=== PATIENT | male | born 1965 | race African-American/Black ===

== ENCOUNTER 2016-05-14 17:07 | Emergency (ER) | payer BC ==
--- NOTE | ~2016-05-14 | PREOPHP ---
PreOp History and Physical [id number] [place]. [address] NAME: SHRUTI COATES : 65 STATUS : [facility]#: [id number] AGE: 50 ADM/REG DATE : 05/14/16 MR#: [id number] REPORT SERV DATE: 05/27/16 DICTATED BY: LORA BURR III DATE: 05/27/16 REPORT STATUS : Draft TRANSCRIBED BY: KATRIN DATE: 05/27/16 HISTORY OF PRESENT ILLNESS: This 50-year-old male comes to the operating room for resection of a low anterior abdominal wall mass. The patient has a soft tissue mass over the mid lower abdominal wall area in the suprapubic area. This was associated with recurrent infections and has required evaluation in the emergency room. The patient comes to the operating room now for resection of this mass. PAST MEDICAL HISTORY: 1. Gout. 2. History of obesity. MEDICATIONS: Sulfamethoxazole, Keflex, Levaquin, and Clobetasol. ALLERGIES: NONE. PAST SURGICAL HISTORY: Status post cholecystectomy. FAMILY HISTORY: Positive for throat cancer. SOCIAL HISTORY: The patient has history of tobacco abuse. He has a history of alcohol use. REVIEW OF SYSTEMS: The patient's fourteen-point review of systems is otherwise unremarkable. PHYSICAL EXAMINATION: GENERAL: This is an extremely obese male, in no acute distress. He has a large overhanging panniculus. VITAL SIGNS: Blood pressure 123/70, pulse 71, temperature 98.7. HEENT: Unremarkable. Cranial nerves 2 through 12 are normal. LUNGS: Clear. CARDIAC: Normal. ABDOMEN: Soft, nontender. Over the lower anterior abdominal wall and the suprapubic area in the midline, is a soft tissue mass, which is some 3 cm in size. It is poorly defined and not fluctuant. EXTREMITIES: Normal. ASSESSMENT: 1. A 50-year-old male with low anterior abdominal wall soft tissue mass, associated with recurrent infections requiring evaluation in the emergency room. 2. Gout. 3. Massive obesity. 4. Hyperlipidemia. PLAN: The patient comes to the operating room now for resection of this anterior abdominal wall mass. On this procedure, the risks, benefits, and alternatives, including but not limited to the risk for bleeding, infection, pain, swelling, scarring, deformity to the area, seroma formation, hematoma formation, recurrent infections, recurrence of the mass, PreOp History and Physical [address] [address] NAME: SHRUTI COATES : 65 STATUS : DEP PAT#: [id number] AGE: 50 ADM/REG DATE : 05/14/16 MR#: [id number] REPORT SERV DATE: 05/27/16 DICTATED BY: LORA BURR III DATE: 05/27/16 REPORT STATUS : Draft TRANSCRIBED BY: KATRIN DATE: 05/27/16 wound failure, wound dehiscence, and unforeseen complications including deep venous thrombosis, pulmonary embolus, myocardial infarction, stroke, pneumonia, and , have been explained to the patient prior to surgery. His questions have been answered. He understands the risks and agrees to surgery as planned. [facility]/KATRIN Lora Burr III, M.D. / [id number] CC: ANGELA MARRERO
[2016-05-14 18:31] LABS: BASOPHILS 0.7 %; EOSINOPHILS 3.9 %; ER CBC TAT 0 Hrs 07 Mins; HEMATOCRIT 45.8 % (40.0-51.0); HEMOGLOBIN 16.1 g/dL (13.6-17.8); IMMATURE GRANULOCYTES 0.5 %; IMMATURE GRANULOCYTES ABSOLUTE 0.07 10/3/uL (0.0-0.11); LYMPHOCYTES 25.6 %; LYMPHOCYTES ABSOLUTE 3.92 10/3/uL (0.67-4.30); MEAN CORPUSCULAR HEMOGLOB 31.1 pg (26.0-34.0); MEAN CORPUSCULAR VOLUME 88.6 fL (80-100); MEAN PLATELET VOLUME 9.2 fL (9.2-13.0); MONOCYTES 10.6 %; MONOCYTES ABSOLUTE 1.62 10/3/uL (0.21-1.20); NEUTROPHILS 58.7 %; NEUTROPHILS ABSOLUTE 9.01 10/3/uL (2.02-8.40); PLATELET COUNT 286 10/3/uL (150-400); RBC DISTRIBUTION WIDTH 12.7 % (12.0-16.0); RED CELL COUNT 5.17 10/6/uL (4.7-6.1); WHITE BLOOD CELLS 15.3 10/3/uL (4.5-10.5)
[2016-05-14 18:32] LABS: MANUAL DIFF NO %; MEAN CORPUS HGB CONC 35.2 g/dL (32.0-36.0)
[2016-05-14 18:41] LABS: BUN (BLOOD UREA NITROGEN) 12 MG/DL (6-23); CALCIUM, SERUM 8.8 MG/DL (8.5-10.4); CHLORIDE, SERUM 104 MMOL/L (96-112); CO2 (CARBON DIOXIDE) 29 MMOL/L (24-34); CREATININE 1.02 MG/DL (0.70-1.30); GFR AFRICAN AMERICAN 99 ML/MIN (>=60); GFR NON AFRICAN AMERICAN 85 ML/MIN (>=60); POTASSIUM, SERUM 3.8 MMOL/L (3.5-5.3); SODIUM, SERUM 141 MMOL/L (135-148)
[2016-05-14 18:42] LABS: GLUCOSE, SERUM 95 MG/DL (60-99)
[2016-06-06] MEDS ORDERED: ALEVE220 MG PO (15:38)
[2016-07-08] MEDS ORDERED: *DENIES (15:03)
== END 2016-05-14 21:10 | disposition home or self-care (01) ==
LOC: ER 17:07
PROVIDERS: Nurse Practitioner
DX: L03.311 Cellulitis of abdominal wall (principal); N40.0 Benign prostatic hyperplasia without lower urinary tract symptoms; I10 Essential (primary) hypertension; E11.9 Type 2 diabetes mellitus without complications
CPT/HCPCS: 74177; 80048; 85025; 96374; 99284; A9270-GY; J0690; Q9967

== ENCOUNTER 2016-07-14 06:23 | Day surgery (SDC) | payer BC ==
[2016-07-09 17:17] LABS: HEMATOCRIT 41.7 % (40.0-51.0); HEMOGLOBIN 14.3 g/dL (13.6-17.8)
--- NOTE | ~2016-07-14 | OP ---
Record Of [facility] [address] [place]. [address] NAME: SHRUTI ORTIZ : 65 STATUS : [facility] PAT#: [id number] AGE: 50 ADM/REG DATE : 07/14/16 MR#: [id number] REPORT SERV DATE: 07/14/16 DICTATED BY: TERRY MARTINES DATE: 07/14/16 REPORT STATUS : Draft TRANSCRIBED BY: MODL DATE: 07/14/16 DATE OF PROCEDURE: 07/14/2016 PREOPERATIVE DIAGNOSIS: Elevated PSA (7.5). POSTOPERATIVE DIAGNOSIS: Elevated PSA (7.5). PROCEDURE PERFORMED: Transrectal ultrasound with prostate needle biopsy. SURGEON: Terry Martines M.D. ANESTHESIA: Monitored anesthesia care. COMPLICATIONS: None. BLOOD LOSS: Minimal. DRAINS: None. SPECIMEN: Sextant prostate needle biopsies. INDICATION: Mr. Ortiz has a PSA of 7.5. He is too nervous to tolerate prostate needle biopsy in the office. He presents for transrectal ultrasound with prostate needle biopsy. TECHNIQUE: Ancef and gentamicin were given preoperative. He was brought to the operating room, placed in the left lateral decubitus position with the knees flexed, care was taken to pad pressure points. Digital rectal exam showed a 50 g to 60 g prostate. No nodularity. Transrectal endocavitary ultrasound probe was placed. Volume measurements were obtained with length 5.8 cm, height 5 cm, width 5.2 cm. Estimated volume 80 mL. The seminal vesicles were not dilated. There were multiple calcifications within the prostate in the transition zone particularly on the left. Sextant prostate needle biopsies were obtained. A total of 12 biopsies were obtained. Digital pressure was held against the biopsy sites. He tolerated the procedure and was taken to the recovery room in satisfactory condition. I will see him back in three weeks to review results. [facility]/KATRIN Terry Martines M.D. / [id number] CC: Terry Martines M.D. Record Of [facility] [address] [place] [address] NAME: SHRUTI ORTIZ : 65 STATUS : [facility] PAT#: [id number] AGE: 50 ADM/REG DATE : 07/14/16 MR#: [id number] REPORT SERV DATE: 07/14/16 DICTATED BY: TERRY MARTINES DATE: 07/14/16 REPORT STATUS : Draft TRANSCRIBED BY: MODL DATE: 07/14/16 Zoltan Bravo M.D.
[~2016-07-14 06:23] MED LIST: *DENIES; ALEVE220 MG PO
== END 2016-07-14 15:57 | disposition home or self-care (01) ==
LOC: SDC 06:23
PROVIDERS: Urology
PROC: 0VB07ZX Excision of Prostate, Via Natural or Artificial Opening, Diagnostic (ICD-10-PCS; principal; 2016-07-14 07:45)
DX: R97.20 Elevated prostate specific antigen [PSA] (principal); N40.0 Benign prostatic hyperplasia without lower urinary tract symptoms; M10.9 Gout, unspecified; F17.210 Nicotine dependence, cigarettes, uncomplicated; Z90.49 Acquired absence of other specified parts of digestive tract; Z98.890 Other specified postprocedural states
CPT/HCPCS: 76872; 76942; 85014; 85018; 88305; 93005; J0690; J1580; J2250; J3010

== ENCOUNTER 2016-08-14 10:03 | Emergency (ER) | payer BC ==
[2016-08-14 10:25] LABS: BASOPHILS 0.3 %; BASOPHILS ABSOLUTE 0.04 10/3/uL (0.0-0.16); EOSINOPHILS ABSOLUTE 0.31 10/3/uL (0.0-0.53); HEMATOCRIT 41.2 % (40.0-51.0); HEMOGLOBIN 14.4 g/dL (13.6-17.8); IMMATURE GRANULOCYTES 0.9 %; IMMATURE GRANULOCYTES ABSOLUTE 0.14 10/3/uL (0.0-0.11); LYMPHOCYTES 17.2 %; LYMPHOCYTES ABSOLUTE 2.69 10/3/uL (0.67-4.30); MEAN CORPUSCULAR HEMOGLOB 30.7 pg (26.0-34.0); MEAN CORPUSCULAR VOLUME 87.8 fL (80-100); MEAN PLATELET VOLUME 9.2 fL (9.2-13.0); MONOCYTES 10.3 %; NEUTROPHILS 69.3 %; NEUTROPHILS ABSOLUTE 10.82 10/3/uL (2.02-8.40); RBC DISTRIBUTION WIDTH 12.8 % (12.0-16.0); RED CELL COUNT 4.69 10/6/uL (4.7-6.1)
[2016-08-14 10:28] LABS: ER CBC TAT 0 Hrs 11 Mins; MANUAL DIFF NO %; PLATELET COUNT 366 10/3/uL (150-400); WHITE BLOOD CELLS 15.6 10/3/uL (4.5-10.5)
[2016-08-14 10:30] LABS: ASCORBIC ACID (UR NOT ORDER) 20 (NEG); BILIRUBIN, URINE NEGATIVE (NEG); ER URINALYSIS TAT 0 Hrs 00 Mins; KETONE, URINE NEGATIVE (NEG); LEUKOCYTE ESTERASE(NOT OR LARGE (NEG); NITRITE (URINE) NEG (NEG)
[2016-08-14 10:31] LABS: WBC (NOT ORDERED) (RFLEX) > 182 (0-5)
[2016-08-14 10:39] LABS: A/G RATIO 0.6 (0.7-1.9); ALBUMIN 2.7 G/DL (3.5-5.0); ALKALINE PHOSPHATASE 75 U/L (45-117); BUN (BLOOD UREA NITROGEN) 14 MG/DL (6-23); CHLORIDE, SERUM 108 MMOL/L (96-112); CO2 (CARBON DIOXIDE) 28 MMOL/L (24-34); CREATININE 1.25 MG/DL (0.70-1.30); GFR AFRICAN AMERICAN 77 ML/MIN (>=60); GFR NON AFRICAN AMERICAN 67 ML/MIN (>=60); GLOBULIN 4.7 G/DL (2.5-4.1); GLUCOSE, SERUM 127 MG/DL (60-99); POTASSIUM, SERUM 3.9 MMOL/L (3.5-5.3); SGOT(AST) 19 U/L (5-40); SGPT(ALT) 33 U/L (5-65); SODIUM, SERUM 143 MMOL/L (135-148); TOTAL BILIRUBIN 0.4 MG/DL (0-1.2); TOTAL PROTEIN 7.4 G/DL (6.0-8.5)
== END 2016-08-14 13:46 | disposition home or self-care (01) ==
LOC: ER 10:03
PROVIDERS: Hospitalist
DX: N39.0 Urinary tract infection, site not specified (principal); F17.200 Nicotine dependence, unspecified, uncomplicated; Z98.890 Other specified postprocedural states
CPT/HCPCS: 71010; 74177; 80053; 81001; 85025; 87040; 87077; 87086; 87186; 93005; 99285; A9270-GY; Q9967